=== PATIENT | male | born 1990 | race Two or more races ===

== ENCOUNTER 2017-04-28 06:18 | Emergency (ER) | payer OTHER ==
[~2017-04-28] VITALS: Ht 175.3 cm; Wt 91.8 kg
[2017-04-28 06:25] VITALS: Ht 175.3 cm; Wt 91.8 kg
[2017-04-28] MEDS ORDERED: CEPHALEXIN 500 MG CAP PO ONE (07:00)
[2017-04-28] MEDS ORDERED: TRIMETHOPRIM/SULFAMETHOX (DS) TAB PO ONE (07:00)
[2017-04-28] MEDS ORDERED: LIDOCAINE 1% (MDV) 20 ML INJ SC ONE (07:00)
[2017-04-28] MEDS ORDERED: HYDROCODONE/APAP (5/325) TAB PO ONE (07:00)
[2017-04-28] MEDS ORDERED: SULF1TAB31 PO (07:25)
[2017-04-28] MEDS ORDERED: IBUP-1542 PO (07:25)
[2017-04-28] MEDS ORDERED: CEPH-443 PO (07:25)
--- NOTE | 2017-04-28 07:31 | ERD ---
ER Documentation Chief Complaint Date/Time DATE: 04/28/17 TIME: 07:28 Chief Complaint Complains of a lump on the tail bone with increasing pain HPI This 27-year-old male complains of pain, swelling redness in his buttock area worsening over the last 3-4 days. Denies any history of trauma, discharge or fevers. ROS All systems reviewed and are negative except as per history of present illness. Medications Home Meds Active Scripts Ibuprofen* (Motrin*) 600 Mg Tab, 600 MG PO Q6, #15 TAB Prov:JOSÉ ANTONIO SAM MD 04/28/17 Cephalexin* (Keflex*) 500 Mg Capsule, 500 MG PO QID for 10 Days, CAP Prov:JOSÉ ANTONIO SAM MD 04/28/17 Sulfamethoxazole/Trimethoprim* (Bactrim Ds* Tablet) 1 Each Tablet, 1 TAB PO BID for 10 Days, #20 TAB Prov:JOSÉ ANTONIO SAM MD 04/28/17 Allergies Allergies: Coded Allergies: No Known Allergy (Unverified , 04/28/17) PMhx/Soc History of Surgery: No Anesthesia Reaction: No Hx Neurological Disorder: No Hx Respiratory Disorders: No Hx Cardiac Disorders: No Hx Psychiatric Problems: No Hx Miscellaneous Medical Probl: No Hx Alcohol Use: Yes Hx Substance Use: Yes Hx Tobacco Use: Yes Smoking Status: Current every day smoker Physical Exam Vitals Vital Signs Date Time Temp Pulse Resp B/P Pulse Ox O2 Delivery O2 Flow Rate FiO2 04/28/17 06:25 99.6 106 20 128/69 97 Physical Exam Const: [], [id number]. Head: Atraumatic Eyes: Normal Conjunctiva ENT: Normal External Ears, Nose and Mouth. Neck: Full range of motion..~ No meningismus. Resp: Clear to auscultation bilaterally Cardio: Regular rate and rhythm, no murmurs Abd: Soft, non tender, non distended. Normal bowel sounds Skin: No petechiae or rashes. Some tenderness redness and fluctuance in the sacral area of the buttocks. Back: No midline or flank tenderness Ext: No cyanosis, or edema Neur: Awake and alert Psych: Normal Mood and Affect Results 24 hrs Current Medications Medications (Trade) Dose Ordered Sig/Francisco Route PRN Reason Start Time Stop Time Status Last Admin Dose Admin Lidocaine (Xylocaine 1% (Mdv) 20 ml) 20 ml ONCE ONCE SC 04/28/17 07:00 04/28/17 07:01 DC Acetaminophen/ Hydrocodone Bitart ([place] (5/325)) 1 tab ONCE ONCE PO 04/28/17 07:00 04/28/17 07:01 DC 04/28/17 06:56 Trimethoprim/ Sulfamethoxazole (Bactrim (Ds)) 1 tab ONCE ONCE PO 04/28/17 07:00 04/28/17 07:01 DC 04/28/17 06:56 Cephalexin (Keflex) 500 mg ONCE ONCE PO 04/28/17 07:00 04/28/17 07:01 DC 04/28/17 06:56 Procedures/MDM Patient presents with signs and symptoms of a pilonidal abscess without sepsis per Seizure non-the buttock area was prepped with Betadine. 4 cc of lidocaine was used for local infiltration. #11 scalpel was used to incise the wound. Loculations were broken up with a cotton tip swab and pus was expressed approximately 8 mL. The wound was packed with approximately 8 cm of quarter- inch gauze and the wound was dressed. Patient tolerated procedure well. Patient was given [place] 5 mg here in the ED, Bactrim and Keflex. Discharged home instructions for wound check and gauze removal in 2 days. He should otherwise return sooner for fevers, worsening redness, new or worsening symptoms. Departure Diagnosis: Primary Impression: Pilonidal cyst with abscess Condition: Stable Patient Instructions: Pilonidal Cyst, Infected (Incision And Drainage) Additional Instructions: Recheck in 2 days for gauze removal. Recheck sooner for worsening redness, fevers, new symptoms. JOSÉ ANTONIO SAM MD Apr 28, 2017 07:30
== END 2017-04-28 07:45 | disposition home or self-care (01) ==
LOC: FTE 06:18
DX: L05.01 Pilonidal cyst with abscess (principal); F17.210 Nicotine dependence, cigarettes, uncomplicated
CPT/HCPCS: 10080; Z7502; Z7610

== ENCOUNTER 2017-04-30 23:39 | Emergency (ER) | payer OTHER ==
[~2017-04-30] VITALS: Ht 167.6 cm; Wt 90.0 kg
[~2017-04-30 23:39] MED LIST: CEPH-443 PO; IBUP-1542 PO; SULF1TAB31 PO
[2017-04-30 23:42] VITALS: Ht 167.6 cm; Wt 90.0 kg
[2017-05-01 01:33] VITALS: BP 125/77; PULSE 72; RESP 20; TEMP 98.1
--- NOTE | 2017-05-01 01:35 | ERD ---
ER Documentation Chief Complaint Date/Time DATE: 05/01/17 TIME: 01:33 Chief Complaint wound check sacral area HPI This patient is a 27-year-old male presenting to the emergency department for wound check of his pilonidal cyst which he had drained 2 days ago in the emergency department. The patient states there is no significant drainage, fevers, redness surrounding the area, or other symptoms. He has no other complaints currently. ROS All systems reviewed and are negative except as per history of present illness. Medications Home Meds Active Scripts Ibuprofen* (Motrin*) 600 Mg Tab, 600 MG PO Q6, #15 TAB Prov:JOSÉ ANTONIO SAM MD 04/28/17 Cephalexin* (Keflex*) 500 Mg Capsule, 500 MG PO QID for 10 Days, CAP Prov:JOSÉ ANTONIO SAM MD 04/28/17 Sulfamethoxazole/Trimethoprim* (Bactrim Ds* Tablet) 1 Each Tablet, 1 TAB PO BID for 10 Days, #20 TAB Prov:JOSÉ ANTONIO SAM MD 04/28/17 Allergies Allergies: Coded Allergies: No Known Allergy (Unverified , 04/28/17) PMhx/Soc Medical and Surgical Hx: pt denies Medical Hx, pt denies Surgical Hx History of Surgery: No Anesthesia Reaction: No Hx Neurological Disorder: No Hx Respiratory Disorders: No Hx Cardiac Disorders: No Hx Psychiatric Problems: No Hx Miscellaneous Medical Probl: No Hx Alcohol Use: No Hx Substance Use: No Hx Tobacco Use: No Smoking Status: Current every day smoker Physical Exam Vitals Vital Signs Date Time Temp Pulse Resp B/P Pulse Ox O2 Delivery O2 Flow Rate FiO2 04/30/17 23:42 97.8 101 20 130/83 98 Physical Exam Const: Nontoxic, well-appearing male in no acute distress. Head: Atraumatic Eyes: Normal Conjunctiva ENT: Normal External Ears, Nose and Mouth. Neck: Full range of motion..~ No meningismus. Resp: Clear to auscultation bilaterally Cardio: Regular rate and rhythm, no murmurs Abd: Soft, non tender, non distended. Normal bowel sounds Skin: There is a healing pilonidal abscess to the right buttock area with mild purulent drainage noted. There is no significant surrounding erythema. Back: No midline or flank tenderness Ext: No cyanosis, or edema Neur: Awake and alert Psych: Normal Mood and Affect Procedures/MDM 27-year-old male presenting to the emergency department for wound check of his pilonidal abscess. On exam there is packing in place however the abscess is draining and appears to be healing well. I removed the packing to allow the cyst to drain and advised the patient to continue his antibiotics. I gave him education regarding wound care, which was reinforced by the nurse, [place]. The patient agreed with the discharge plan of diagnosis. Strict ER return precautions were discussed. Close follow-up with primary care physician advised. The patient is to return in 48 hours for repeat wound evaluation. Departure Diagnosis: Primary Impression: Encounter for wound re-check Condition: Fair Patient Instructions: Wound Care Additional Instructions: Follow up with your PCP within the next 1-3 days for a repeat evaluation and a possible referral to a specialist, if required. Return the the emergency department immediately if symptoms worsen or change. If you have any questions regarding medications, ask your pharmacist or us before you leave. If any adverse reactions, occur while taking your medications, discontinue the treatment and return to the emergency department immediately. If any new or worsening symptoms, uncontrolled fevers, or other unexplained symptoms occur, return to the emergency department immediately. Take your medications as directed, and complete the entire course of treatment. IGNACIO AGUDELO PA-C May 01, 2017 01:35
== END 2017-05-01 01:53 | disposition home or self-care (01) ==
LOC: FTE 23:39
DX: Z48.01 Encounter for change or removal of surgical wound dressing (principal); F17.210 Nicotine dependence, cigarettes, uncomplicated
CPT/HCPCS: 99281

== ENCOUNTER 2017-12-20 10:28 | Emergency (ER) | END 2017-12-20 15:21 | disposition home or self-care (01) ==

== ENCOUNTER 2018-02-27 05:00 | Emergency (ER) | END 2018-02-27 06:55 | disposition home or self-care (01) ==

== ENCOUNTER 2018-03-10 04:35 | Emergency (ER) | END 2018-03-10 07:09 | disposition home or self-care (01) ==